=== PATIENT | male | born 1985 | race Caucasian/White ===

== ENCOUNTER 2017-07-04 13:30 | Emergency (ER) | payer OTHER ==
[2017-07-04 13:41] VITALS: TEMP 98.4
--- NOTE | 2017-07-04 13:55 | EDPHY ---
H & P Smoking Status: Current every day smoker Time Seen by Provider: 07/04/17 13:52 HPI/ROS: CHIEF COMPLAINT: Left arm and right leg numbness. HISTORY OF PRESENT ILLNESS: This patient is a 32 year old male complaining of left arm and right leg numbness. Last Saturday, took backpack off and felt an "immediate blood pressure drop". He felt lightheaded and weak and noticed his hands turned white. Shortly after this, his left arm began to feel weak and numb. Symptoms have persisted and he has had a dull pain between his shoulder and elbow. His weakness and numbness are more pronounced in the morning. The patient has had a similar sensation in his right leg between his ankle and knee, ongoing for the last month. He has appropriate strength. Additionally, the patient has felt diaphoretic often and has noted paresthesias in his fingers and toes as well as unusually cold extremities. He has not seen his regular physician for any of these concerns. He has felt quite stressed regarding his symptoms. Today is his second day off work and he feels worse than usual, so he presents to the emergency department for evaluation. No recent head or neck trauma. No fever, headache, neck pain, difficulty walking, or other associated symptoms. REVIEW OF SYSTEMS: A 10 point review of systems was performed and is negative with the exception of the elements mentioned in the history of present illness. (Ana Maria Montague) Past Medical/Surgical History: Denies. (Ana Maria Montague) Social History: Daily cigarette use. Consumes 3-4 alcoholic drinks per day. Mother at bedside. (Ana Maria Montague) Physical Exam: General Appearance: Alert, appears anxious, occasionally tearful. Eyes: Pupils equal and round, no conjunctival pallor or injection ENT, Mouth: Mucous membranes moist Neck: Normal inspection Respiratory: Lungs are clear to auscultation Cardiovascular: Regular rate and rhythm Gastrointestinal: Abdomen is soft and non-tender Neurological: Alert, oriented x3, cranial nerves II through XII intact, motor 5 /5, sensory intact to light touch, DTRs 1+ bilaterally, normal gait Skin: Warm and dry, no rash Extremities: Nontender, no pedal edema Psychiatric: Mood and affect normal (Ana Maria Montague) Constitutional: Initial Vital Signs Temperature (C) 36.9 C 07/04/17 13:38 Heart Rate 74 07/04/17 13:38 Respiratory Rate 16 07/04/17 13:38 Blood Pressure 123/99 H 07/04/17 13:38 O2 Sat (%) 99 07/04/17 13:38 O2 Delivery Mode Room Air Allergies/Adverse Reactions: No Known Allergies Allergy (Unverified 07/04/17 13:38) Medical Decision Making - Diagnostics EKG Interpretation: EKG interpreted by me reveals normal sinus rhythm, rate 56, no ST/T changes. Interpretation: Normal EKG (Ana Maria Montague) ED Course/Re-evaluation: 32 y/o male presents with one week history of left arm numbness and weakness and one month history of right leg numbness and weakness. The patient is anxious appearing and occasionally tearful throughout my interview. He is neurologically intact on exam. Strength and reflexes normal. Plan for MRI brain to eval for MS, doubt CVA/other intracranial process, given distribution of sx. Labs including CBC, chemistries. EKG reveals sinus rhythm, no evidence of ischemia. 15:00 If MRI normal, plan to d/c home in good condition to follow up with neurology. Care transferred to Dr. Edward at shift change pending MRI results. (Ana Maria Montague) Differential Diagnosis: includes though not limited to MS, CVA, ICH, tumor, spinal cord pathology, peripheral neuropathy (Ana Maria Montague) Other Provider: I was asked by Dr. Montague to follow-up on MRI results and discharge home if negative. MRI brain reported as negative by Dr. Herrera. Patient informed and is comfortable going home. (Alexis Edward) - Data Points Laboratory Results: Laboratory Results 07/04/17 14:00 07/04/17 14:00 Departure - Departure Disposition: Home, Routine, Self-Care Clinical Impression: Lower extremity weakness, Upper extremity weakness Condition: Good Instructions: Paresthesia (ED), Weakness (ED) Additional Instructions: 1. Follow up with Dr. Huang, neurologist. 2. Return to the emergency department for increasing weakness or numbness, difficulty walking, severe headache, or other worsening of condition. Referrals: Mirza Huang MD [Medical Doctor] - As per Instructions Report Scribed for: Ana Maria Montague Report Scribed by: Yanique Del Rosario Date of Report: 07/04/17 Time of Report: 13:55 Physician Review and Approval Statement: 07/04/17 13:55 Portions of this note were transcribed by a spanish medical interpreter. I personally performed a history, physical exam, medical decision making, and confirmed accuracy of information the transcribed note. (Ana Maria Montague)
--- NOTE | 2017-07-04 14:09 | CPEKG ---
Heart Rate: 56 RR Interval: 1071 P-R Interval: 140 QRSD Interval: 98 QT Interval: 416 QTC Interval: 402 P Biola: 76 QRS Biola: 78 T Wave Biola: 46 EKG Severity - BORDERLINE ECG - EKG Impression: SINUS RHYTHM EKG Impression: PROBABLE LEFT ATRIAL ABNORMALITY Electronically Signed By: Ana Maria Montague 04-Jul-2017 14:55:16
[2017-07-04 14:46] LABS: PLATELET COUNT 234 10^3/uL (150-400)
[2017-07-04 16:31] VITALS: BP 111/64; PULSE 52; RESP 16; O2SAT 97
== END 2017-07-04 16:33 | disposition home or self-care (01) ==
DX: M62.81 Muscle weakness (generalized) (principal); F17.210 Nicotine dependence, cigarettes, uncomplicated